=== PATIENT | female | born 1965 | race Caucasian/White ===

== ENCOUNTER 2016-09-29 13:49 | Emergency (ER) | payer OTHER ==
--- NOTE | ~2016-09-29 | ER ---
PATIENT'S NAME: JUANA [facility] AGE: 51 Y [address] ROOM: [place] [address] LOCATION: [facility] ADMIT DATE: 09/29/2016 ER/Outpatient Report DISCHARGE DATE: 09/29/2016 FAMILY PHYSICIAN: Milton Wahl MD ATTENDING PHYSICIAN: Kayden Mcgowan Time of Patient's Arrival: 1349 hours. Time of Patient's Evaluation: 1400 hours. CHIEF COMPLAINT: Migraine headache. HISTORY OF PRESENT ILLNESS: This is a 51-year-old female who presents to the ER with a migraine headache that started this morning. The patient states that she did take some Tylenol around 0830 hours, which seemed to help her headache and she did not take her Imitrex at that time. She states her headache started returning around 1230 hours, so she repeated the Tylenol again at 1 o'clock and then became nauseated and had one emesis. She states that she does have a history of migraines, this is previous to her migraines in the past. It is located across her forehead and the back of her neck. She has had no recent illness, no fever or chills. No other problems at this time. ALLERGIES: NO KNOWN ALLERGIES. MEDICATIONS: Imitrex. PAST MEDICAL HISTORY: Migraines, irritable bowel, she has a hernia. PAST SURGERIES: Right knee, heart catheterization, appendectomy, and cholecystectomy. SOCIAL HISTORY: She does drink alcohol occasionally. REVIEW OF SYSTEMS: A 10-point review of systems was completed and was negative with the exception of those discussed in the HPI. PHYSICAL EXAMINATION: VITAL SIGNS: Weight 90 kg taken, blood pressure is 103/77, pulse 106, respirations 20, temperature 97 degrees tympanically, and saturations 95% on PATIENT'S NAME: [facility]NA [facility] AGE: 51 Y [address] ROOM: [place] [address] LOCATION: ED ADMIT DATE: 09/29/2016 ER/Outpatient Report DISCHARGE DATE: 09/29/2016 FAMILY PHYSICIAN: Milton Wahl MD ATTENDING PHYSICIAN: Kayden Mcgowan room air. Laila Coma Score is 15. GENERAL: Alert, calm, well-developed female, in no acute distress. HEENT: Head: Normocephalic. Eyes: Pupils are equal and reactive to light. Ears: TMs display good light reflexes bilaterally. Auditory canals clear. Nose: Turbinates pink with no drainage. Throat: No exudates or erythema. She does have widespread dental decay. NECK: No nuchal rigidity. LUNGS: Clear to auscultation. HEART: Regular rate and rhythm. EXTREMITIES: No clubbing or cyanosis. She does have full range of motion. IMPRESSION: Migraine headache. ASSESSMENT AND PLAN: We did give the patient Toradol 60 mg intramuscularly along with Phenergan 50 mg intramuscularly here in the ER. She did tolerate this well. We will dismiss her to home. She needs to continue to push fluids, monitor symptoms, and should follow up with her primary care physician if needed. The patient understands and agrees with care. MILADY SY PA-C FOR MD AVRIL BERNSTEIN/ruth /[id number] d: 09/29/161944 t: 09/30/16 1738, OUTPATIENT REPORT
[~2016-09-29 13:49] MED LIST: ASPIRIN325 MG PO; IMITREX100 MG PO; NITROSTAT0.4 MG SL; PERCOCET [ROXIC1 TAB PO
== END 2016-09-29 14:10 | disposition disaster alternative care site (69) ==
LOC: GMED 13:49
DX: G43.909 Migraine, unspecified, not intractable, without status migrainosus (principal); K58.9 Irritable bowel syndrome, unspecified; Z79.899 Other long term (current) drug therapy; Z90.49 Acquired absence of other specified parts of digestive tract
CPT/HCPCS: J1885; J2550

== ENCOUNTER 2017-01-12 17:04 | Emergency (ER) | payer OTHER ==
--- NOTE | ~2017-01-12 | ER ---
[facility] 51 [facility] [address] ROOM: [place] [id number] LOCATION: [facility] ADMIT DATE: 01/12/2017 ER/Outpatient Report DISCHARGE DATE: 01/12/2017 FAMILY PHYSICIAN: Milton Wahl MD ATTENDING PHYSICIAN: Kanu Lange Time of Arrival: 1709 hours. Time of Exam: 1709 hours. CHIEF COMPLAINT: Bug bite on her neck. HISTORY OF PRESENT ILLNESS: The patient states Wednesday she noticed a sore on the side of her neck, that she feels could be from a bug bite, she is not sure exactly what caused it, it has been itching, it has become more reddened and swollen in the last 24 hours. Denies any difficulty breathing. Has not had any difficulty swallowing. States that she did itch and it did drain a little bit. Denies having a fever. Has not had any other symptoms. Has no other bites. ALLERGIES: NO KNOWN ALLERGIES. CURRENT MEDICATIONS: On the chart and reviewed by me. PAST MEDICAL HISTORY: Migraine headaches. SOCIAL HISTORY: She denies use of tobacco or drugs. Drinks alcohol on a rare basis only. States Dr. Wahl is her primary provider. REVIEW OF SYSTEMS: Negative other than those mentioned in the HPI. PHYSICAL EXAMINATION: VITAL SIGNS: She weighed 92.8 kg, blood pressure is 148/83, pulse is 65, respirations 14, temperature of 98.9 tympanic, and O2 saturation was 96% on room air. GENERAL: She is awake, alert, and oriented x4. SKIN: [place], warm, and dry. RESPIRATIONS: Even and nonlabored. Lung sounds are clear throughout. HEART: Regular rate and rhythm. SKIN: The patient has a lesion to the right neck area, that has approximately PATIENT'S NAME: JUANA [facility] AGE: 51 Y [address] ROOM: [place] [id number] LOCATION: [facility] ADMIT DATE: 01/12/2017 ER/Outpatient Report DISCHARGE DATE: 01/12/2017 FAMILY PHYSICIAN: Milton Whal MD ATTENDING PHYSICIAN: Kanu Lange 1.2 cm scabbed area and then it is reddened and firm at approximately 3 cm area. It is tender to touch. No drainage is noted. IMPRESSION: Infected lesion of her neck, possible bug bite. PLAN: Home, rest. Keep it clean and dry. Washing it with soap and water. Prescription was written for doxycycline. If symptoms persist or worsen, she is to follow up with her primary provider in the next 2 to 3 days. She verbalized understanding. PLACIDO AUSTIN APRN FOR DO [employer] [facility]/hortencial /[id number] d: 01/12/17 2337 t: 01/15/17 0156, OUTPATIENT REPORT
== END 2017-01-12 17:26 | disposition disaster alternative care site (69) ==
LOC: GMED 17:04
DX: L98.8 Other specified disorders of the skin and subcutaneous tissue (principal); Z79.1 Long term (current) use of non-steroidal anti-inflammatories (NSAID)